=== PATIENT | male | born 1960 | race Caucasian/White ===

== ENCOUNTER 2021-06-19 20:48 | Emergency (ER) | payer BC ==
[2021-06-19] MEDS ORDERED: HYDROcodone/Acetaminophen 10/325 mg Tablet ONE (21:20)
== END 2021-06-19 22:39 | disposition home or self-care (01) ==
LOC: ERS 20:48
DX: S80.212A Abrasion, left knee, initial encounter (principal); E11.9 Type 2 diabetes mellitus without complications; E03.9 Hypothyroidism, unspecified; E78.5 Hyperlipidemia, unspecified; I10 Essential (primary) hypertension; X50.1XXA Overexertion from prolonged static or awkward postures, initial encounter

== ENCOUNTER 2021-07-12 09:09 | Outpatient (CLI) | payer BC | END 2021-07-12 09:10 | disposition home or self-care (01) | LOC: TBSIIMAG 09:09 | PROVIDERS: ATTEND Orthopaedic Surgery | DX: S83.522A Sprain of posterior cruciate ligament of left knee, initial encounter (principal); S83.412A Sprain of medial collateral ligament of left knee, initial encounter ==

== ENCOUNTER 2022-02-21 18:00 | Outpatient (CLI) | payer BC | END 2022-02-21 18:01 | disposition home or self-care (01) | LOC: SLEEPLAB 18:00 | PROVIDERS: ATTEND Family Medicine | DX: G47.33 Obstructive sleep apnea (adult) (pediatric) (principal); E66.9 Obesity, unspecified; R06.83 Snoring; F51.9 Sleep disorder not due to a substance or known physiological condition, unspecified; I10 Essential (primary) hypertension; G47.00 Insomnia, unspecified; Z68.30 Body mass index [BMI] 30.0-30.9, adult | CPT/HCPCS: 95800 ==

== ENCOUNTER 2024-05-30 13:34 | Outpatient (CLI) | payer MEDICARE, BC | END 2024-05-30 13:35 | disposition home or self-care (01) | LOC: SCSMRI 13:34 | PROVIDERS: ATTEND Neurological Surgery | DX: M43.12 Spondylolisthesis, cervical region (principal); M48.02 Spinal stenosis, cervical region | CPT/HCPCS: 70210; 72141 ==